=== PATIENT | female | born 1970 | race Caucasian/White ===

== ENCOUNTER → 2018-06-24 | Outpatient (CLI) | payer MEDICAID ==
--- NOTE | 2018-06-25 12:00 | MM ---
Reason for exam: screening (asymptomatic). Last mammogram was performed 2 years and 11 months ago. History: Family history of breast cancer in maternal grandmother at age 60 and breast cancer in maternal aunt. US discontinued breast bx RT of the right breast, August 03, 2015. Took hormonal contraceptives for 6 years. Physical Findings: A clinical breast exam by your physician is recommended on an annual basis and results should be correlated with mammographic findings. MG Screening Mammo w CAD Bilateral CC and MLO view(s) were taken. XCCL view(s) were taken of the left breast. Prior study comparison: July 18, 2015, bilateral MG 3d screening mammo w/cad. The breast tissue is heterogeneously dense. This may lower the sensitivity of mammography. There is no discrete abnormality. No significant changes when compared with prior studies. ASSESSMENT: Negative, BI-RAD 1 RECOMMENDATION: Routine screening mammogram of both breasts in 1 year.
== END | disposition home or self-care (01) ==
LOC: RADMAMWWP 13:02
PROVIDERS: ATTEND Internal Medicine
DX: Z12.31 Encounter for screening mammogram for malignant neoplasm of breast (principal)
CPT/HCPCS: 77067

== ENCOUNTER → 2020-09-21 | Outpatient (CLI) | payer BC ==
--- NOTE | 2020-09-21 14:18 | MM ---
Reason for exam: screening (asymptomatic). Last mammogram was performed 2 years and 3 months ago. History: Family history of breast cancer in maternal grandmother at age 60 and breast cancer in maternal aunt. US discontinued breast bx RT of the right breast, August 03, 2015. Took hormonal contraceptives for 6 years. Physical Findings: A clinical breast exam by your physician is recommended on an annual basis and results should be correlated with mammographic findings. MG 3D Screening Mammo W/Cad Bilateral CC and MLO view(s) were taken. Prior study comparison: June 24, 2018, bilateral MG screening mammo w CAD. July 18, 2015, bilateral MG 3d screening mammo w/cad. The breast tissue is heterogeneously dense. This may lower the sensitivity of mammography. There are benign appearing round calcifications bilaterally. There is no discrete abnormality. ASSESSMENT: Benign, BI-RAD 2 RECOMMENDATION: Routine screening mammogram of both breasts in 1 year.
== END | disposition home or self-care (01) ==
LOC: RADMAMWWP 07:04
PROVIDERS: ATTEND Internal Medicine
DX: Z12.31 Encounter for screening mammogram for malignant neoplasm of breast (principal)
CPT/HCPCS: 77063; 77067

== ENCOUNTER → 2021-02-01 | Outpatient (CLI) | payer BC ==
[~2021-02-01] MED LIST: IRON DEXTRAN 100 MG/2 ML VIAL IV NR; SODIUM CHLORIDE 0.9% 500 ML 500 ML in EMPTY BAG 1 BAG IV PRN
[2021-02-01 08:52] VITALS: BP 161/99; PULSE 97; RESP 16; TEMP 98.1
== END ==
LOC: PROCWHC3 08:39
PROVIDERS: ATTEND Family Medicine
DX: D50.9 Iron deficiency anemia, unspecified (principal)
CPT/HCPCS: 96374; J1750

== ENCOUNTER 2021-05-19 20:17 | Emergency (ER) | payer BC ==
[2021-05-19 20:41] VITALS: BP 133/78; PULSE 60; RESP 20; TEMP 98.6
[2021-05-19] MEDS ORDERED: DIPH,PERTUS(ACELL)TETVAC-LF 0.5 ML VIAL IM ONE (20:55)
[2021-05-19] MEDS ORDERED: ACETAMINOPHEN TAB 500 MG TAB PO STA (20:55)
[2021-05-19] MEDS ORDERED: CIPROFLOXACIN HCL 500 MG TAB PO STA (20:55)
--- NOTE | 2021-05-19 21:09 | XR ---
EXAMINATION TYPE: XR foot complete LT DATE OF EXAM: 05/19/2021 CLINICAL HISTORY: Foot pain, stepped on nail TECHNIQUE: Frontal, lateral, and oblique images of the left foot are obtained. COMPARISON: None FINDINGS: No acute fracture/dislocation evident in the left foot. Mild degenerative changes of the first metata rsophalangeal joint. Mild degenerative changes of the midfoot. Bipartite medial sesamoid bone. The ov erlying soft tissue appears unremarkable. No radiopaque foreign bodies. IMPRESSION: 1. No acute fracture or dislocation. 2. No radiopaque foreign bodies.
--- NOTE | 2021-05-19 21:16 | ED ---
Skin/Abscess/FB HPI - General Chief complaint: Skin/Abscess/Foreign Body Stated complaint: L foot injury, stepped on nail Time Seen by Provider: 05/19/21 20:44 Source: patient, family Mode of arrival: ambulatory Limitations: no limitations - History of Present Illness Initial comments: 50 year-old female patient presents to the emergency department for evaluation after she stepped on a chencho nail. States it went through her shoe. Injury occurred about 2 hours prior to arrival. She reports some pain to the forefoot. States she did wash the area immediately. Reports some pain to the top of the foot as well. Denies numbness or tingling. Denies any other injuries or concerns. - Related Data Home Medications Medication Instructions Recorded Confirmed Cholecalciferol [Vitamin D3 (25 25 mcg PO DAILY 02/01/21 02/01/21 Mcg = 1000 Iu)] Ferrous Sulfate [Iron] 325 mg PO BID 02/01/21 02/01/21 Inulin/Chromium Picolinate [Fiber 1 each PO DAILY 02/01/21 02/01/21 Gummies Chew] Multivitamin [Multivitamins Adult 1 each PO DAILY 02/01/21 02/01/21 Gummies] [place]-3 Fatty Acids/Fish Oil [Fish 1 each PO DAILY 02/01/21 02/01/21 Oil 1,000 mg Softgel] Pantoprazole Sodium [Protonix] 40 mg PO DAILY 02/01/21 02/01/21 Previous Rx's Medication Instructions Recorded Ciprofloxacin HCl [Cipro] 500 mg PO Q12HR #10 tablet 05/19/21 Fluconazole [Diflucan] 150 mg PO ONCE #2 tab 05/19/21 Allergies Allergy/AdvReac Type Severity Reaction Status Date / Time No Known Allergies Allergy Verified 05/19/21 20:41 Review of Systems ROS Statement: Those systems with pertinent positive or pertinent negative responses have been documented in the HPI. ROS Other: All systems not noted in ROS Statement are negative. Past Medical History Past Medical History: GERD/Reflux Additional Past Medical History / Comment(s): anemia, irritable bowel syndrome, migraines History of Any Multi-Drug Resistant Organisms: None Reported Past Surgical History: Bariatric Surgery, Tubal Ligation Past Anesthesia/Blood Transfusion Reactions: Motion Sickness Past Psychological History: No Psychological Hx Reported Smoking Status: Current every day smoker Past Alcohol Use History: None Reported Past Drug Use History: None Reported General Exam Limitations: no limitations General appearance: alert, in no apparent distress, other (This is a well- developed, well-nourished adult female patient in no acute distress. Vital signs upon presentation are temperature 98.6F, pulse 60, respirations 20, blood pressure 133/78, pulse ox 100% on room air.) Respiratory exam: Present: normal lung sounds bilaterally. Absent: respiratory distress, wheezes, rales, rhonchi, stridor Cardiovascular Exam: Present: regular rate, normal rhythm, normal heart sounds. Absent: systolic murmur, diastolic murmur, rubs, gallop, clicks Extremities exam: Present: full ROM, normal capillary refill, other (Small puncture to the bottom of the foot. No swelling. No erythema. skin is otherwise pink, warm, dry. Cap refill less than 3 seconds. Pedal and posttibial pulses 2+.). Absent: tenderness, pedal edema, joint swelling, calf tenderness Neurological exam: Present: alert, oriented X3, CN II-XII intact Psychiatric exam: Present: normal affect, normal mood Skin exam: Present: warm, dry, intact, normal color. Absent: rash Course Vital Signs 05/19/21 20:38 Temperature 98.6 F Pulse Rate 60 Respiratory 20 Rate Blood Pressure 133/78 O2 Sat by Pulse 100 Oximetry Medical Decision Making - Medical Decision Making 50-year-old female patient presents to the emergency department today for evaluation after stepping on a nail. Nail went through the bottom of her shoe. Physical exam did reveal puncture wound to the plantar surface of the forefoot. No erythema, no swelling. X-ray showed no radiopaque foreign body. She'll be started on Cipro for infection prevention. We did update her tetanus. She'll be discharged follow up with the primary care physician for recheck in one to days. Return parameters were discussed in detail. She verbalizes understanding and agrees with this plan. My attending is Dr. Chawla. - Radiology Data Radiology results: report reviewed, image reviewed 3 views of the left foot are obtained. Report was reviewed in its entirety. Impression by Dr. Kelley shows no acute fracture or dislocation. No radiopaque foreign bodies. Disposition Clinical Impression: Puncture wound of left foot Disposition: HOME SELF-CARE Condition: Good Instructions (If sedation given, give patient instructions): Puncture Wound (ED) Additional Instructions: Complete antibiotic prescription in full. Take Tylenol Motrin for pain control. Follow-up with your primary care physician for recheck in 1-2 days. Return to the emergency department immediately for any new, worsening, or concerning symptoms. Prescriptions: Ciprofloxacin HCl [Cipro] 500 mg PO Q12HR #10 tablet Fluconazole [Diflucan] 150 mg PO ONCE #2 tab Is patient prescribed a controlled substance at d/c from ED?: No Referrals: Michael Fowler MD [Primary Care Provider] - 1-2 days Time of Disposition: 21:16
== END 2021-05-19 21:28 | disposition home or self-care (01) ==
LOC: EC 20:17
DX: S91.332A Puncture wound without foreign body, left foot, initial encounter (principal); K21.9 Gastro-esophageal reflux disease without esophagitis; F17.200 Nicotine dependence, unspecified, uncomplicated; Z79.899 Other long term (current) drug therapy; W45.0XXA Nail entering through skin, initial encounter; Y92.009 Unspecified place in unspecified non-institutional (private) residence as the place of occurrence of the external cause; Z23 Encounter for immunization
CPT/HCPCS: 90471; 90715; 99283

== ENCOUNTER 2022-01-28 08:40 | Day surgery (SDC) | payer BC ==
[2022-01-24 15:53] VITALS: BMI 32.8
[~2022-01-28 08:40] MED LIST changes: -IRON DEXTRAN 100 MG/2 ML VIAL IV NR; +LACTATED RINGERS 1,000 ML IV SCH; +LIDOCAINE 1% (10MG/ML) FOR IV START INTRADERMA PRN; -SODIUM CHLORIDE 0.9% 500 ML 500 ML in EMPTY BAG 1 BAG IV PRN
[2022-01-28 10:04] VITALS: TEMP 97.9
[2022-01-28] MEDS ORDERED: LIDOCAINE 2% INJ 20 MG/ML (2 ML VIAL) ONE (10:55)
[2022-01-28] MEDS ORDERED: PROPOFOL 10 MG/ML 20 ML VIAL IV ONE (10:55)
--- NOTE | 2022-01-28 11:11 | P.PCN ---
Date of Procedure: 01/28/22 Procedure(s) Performed: BRIEF HISTORY: Patient is a 51-year-old pleasant white female scheduled for an elective colonoscopy as a part of screening for colorectal neoplasia. PROCEDURE PERFORMED: Colonoscopy. PREOPERATIVE DIAGNOSIS: Screening for colon cancer. IV sedation per Anesthesia. PROCEDURE: After informed consent was obtained, the patient, was brought into the endoscopy unit. IV sedation was administered by Anesthesia under continuous monitoring. Digital rectal examination was normal. Initially the Olympus CF-160 flexible video colonoscope was then inserted in the rectum, gradually advanced into the cecum without any difficulty. Careful examination was performed as the scope was gradually being withdrawn. Ileocecal valve and the appendiceal orifice were visualized and appeared normal. Prep was excellent. Mucosa of the cecum, ascending colon, transverse colon, descending colon, sigmoid colon, and rectum appeared normal. Retroflexion was performed in the rectum and no lesions were seen. The patient tolerated the procedure well. IMPRESSION: Normal-appearing colon from rectum to cecum with no evidence of colorectal neoplasia . RECOMMENDATIONS: Findings of this examination were discussed with the patient as well as a family. She was advised to have a repeat screening colonoscopy in 10 years
[2022-01-28 11:18] VITALS: RESP 18
[2022-01-28 11:32] VITALS: BP 104/72; PULSE 54
== END 2022-01-28 11:49 | disposition home or self-care (01) ==
LOC: ORWHC2ENDO 08:40
PROVIDERS: ATTEND Internal Medicine Gastroenterology
DX: Z12.11 Encounter for screening for malignant neoplasm of colon (principal)
CPT/HCPCS: 45378; 81025; J2704; J2001

== ENCOUNTER → 2023-05-06 | Outpatient (CLI) | payer BC ==
--- NOTE | 2023-05-06 14:34 | BD ---
EXAMINATION TYPE: Axial Bone Density DATE OF EXAM: 05/06/2023 CLINICAL HISTORY: 52 years old Female. ICD-10 CODE: M85.851 disorder of bone Height: 66 in Weight: 225 lbs FRAX RISK QUESTIONS: Current Tobacco Use: yes RISK FACTORS HISTORY OF: Active: yes Postmenopausal woman: If Premenopausal, do you have irregular periods: yes Take estrogen and/or progesterone medications: not now How lon years MEDICATIONS: Additional Medications: gerd meds, omega 3, iron EXAM MEASUREMENTS: Bone mineral densitometry was performed using the [email or web address] System. Bone mineral density as measured about the Lumbar spine is: ----- L1-L4(G/cm2): 1.644 T Score Values are as follows: ----- L1: 2.9 ----- L2: 3.8 ----- L3: 4.6 ----- L4: 3.9 ----- L1-L4: 3.9 Z Score Values are as follows: ----- L1: 2.2 ----- L2: 3.1 ----- L3: 3.9 ----- L4: 3.2 ----- L1-L4: 3.2 Bone mineral density baseline Bone mineral density about the R hip (g/cm2): 1.364 Bone mineral density about the L hip (g/cm2): T Score values are as follows: -----R Neck: 2.1 -----L Neck: 2.0 -----R Total: 2.8 -----L Total: 2.9 Z Score values are as follows: -----R Neck: 2.2 -----L Neck: 2.0 -----R Total: 2.5 -----L Total: 2.5 Bone mineral density baseline FRAX%s: The graph provided illustrates a 2.8% chance for a major osteoporotic fx and a 0.0% chance fo r the hips probability for fx in 10 years time. IMPRESSION: Normal (Values between +1 and -1 indicate normal bone mass). Consider repeating this study in 5 year s or sooner if there is some new clinical indication. NOTE: T-SCORE=SD OF THE YOUNG ADULT MEAN.
--- NOTE | 2023-05-07 08:45 | MM ---
Reason for Exam: Screening (asymptomatic). Last mammogram was performed 2 year(s) and 7 month(s) ago. Patient History: Menarche at age 14. First Full-Term at age 23. Patient used Hormonal Contraceptives for 6 years. 08/03/2015, US discontinued breast bx RT on the right side. Maternal grandmother had breast cancer, age 60. Maternal aunt had breast cancer. Risk Values: Temi 5 year model risk: 0.9%. NCI Lifetime model risk: 8.0%. Prior Study Comparison: 07/18/2015 Bilateral Screening Mammogram, [facility]. 06/24/2018 Bilateral Screening Mammogram, [facility]. 09/21/2020 Bilateral Screening Mammogram, [facility]. Tissue Density: The breast tissue is heterogeneously dense. This may lower the sensitivity of mammography. Findings: Analyzed By CAD. There is no suspicious group of microcalcifications or new suspicious mass in either breast. Benign calcifications within both breasts. Overall Assessment: Benign, BI-RAD 2 Management: Screening Mammogram of both breasts in 1 year. A clinical breast exam by your physician is recommended on an annual basis and results should be correlated with mammographic findings. Note on Temi scores and lifetime risk: 1. A Temi score greater than 3% is considered moderate risk. If this is the case, consider specialist referral to assess eligibility for a risk reducing agent. If overall lifetime risk for the development of breast cancer is 20% or higher, the patient may qualify for future screening with alternating mammogram and breast MRI. Electronically signed and approved by: Dillon Mclain D.O.
== END | disposition home or self-care (01) ==
LOC: RADMAMWWP 10:34
PROVIDERS: ATTEND Internal Medicine
DX: Z12.31 Encounter for screening mammogram for malignant neoplasm of breast (principal); M85.851 Other specified disorders of bone density and structure, right thigh; Z80.3 Family history of malignant neoplasm of breast
CPT/HCPCS: 77063; 77067; 77080

== ENCOUNTER → 2024-01-06 | Outpatient (CLI) | payer OTHER ==
[2024-01-06 15:54] LABS: HCT 45.1 % (37.2-46.3); MCH 29.6 pg (27.0-32.0); MCHC 33.3 g/dL (32.0-37.0); Mean Platelet Volume 10.5 FL (9.5-12.2); NRBC Per 100 WBC 0 X 10*3/uL (0.00-0.01); Platelet Count 187 X 10*3/uL (140-440); RBC 5.07 X 10*6/uL (4.10-5.20); RDW 12.6 % (11.5-14.5); WBC 4.77 X 10*3/uL (4.50-10.00)
[2024-01-06 16:41] LABS: Progesterone 0.4 ng/mL
[2024-01-06 16:49] LABS: ALT 23 U/L (8-44); AST 27 U/L (13-35); Albumin 4.3 g/dL (3.8-4.9); Albumin/Globulin Ratio 2.05 Ratio (1.60-3.17); Alkaline Phosphatase 69 U/L (41-126); Calcium 9.4 mg/dL (8.7-10.3); Carbon Dioxide 26.8 mmol/L (21.6-31.8); Chloride 104 mmol/L (96-109); Estradiol 62.5 pg/mL; Globulin 2.1 g/dL (1.6-3.3); Glucose 131 mg/dL (70-110); Potassium 4.3 mmol/L (3.5-5.5); Sodium 141 mmol/L (135-145); T4, Free (Free Thyroxine) 1.36 ng/dL (0.80-1.80); Total Bilirubin 0.4 mg/dL (0.3-1.2); Total Protein 6.4 g/dL (6.2-8.2)
[2024-01-06 18:02] LABS: Follicle Stimulating Hormone 51.8 mIU/mL
== END | disposition home or self-care (01) ==
LOC: LABWHC1 10:14
PROVIDERS: ATTEND Obstetrics & Gynecology
DX: N95.1 Menopausal and female climacteric states (principal); R37 Sexual dysfunction, unspecified
CPT/HCPCS: 36415; 80053; 82670; 83001; 83036; 84144; 84403; 84439; 84443; 84481; 85027; 86376

== ENCOUNTER → 2025-04-06 | Outpatient (CLI) | payer OTHER ==
--- NOTE | 2025-04-06 07:40 | US ---
EXAMINATION TYPE: US carotid duplex BILAT DATE OF EXAM: 04/06/2025 COMPARISON: NONE CLINICAL INDICATION: Female, 54 years old with history of [id number] BILAT CAROTID ARTERY STENOSIS; stenos is Additional History: .... TECHNIQUE: Grayscale, color Doppler and spectral Doppler evaluation of the bilateral carotid systems and vertebral arteries. Indirect Doppler criteria was utilized. FINDINGS: EXAM MEASUREMENTS: RIGHT: Peak Systolic Velocity (PSV) cm/sec ----- Right CCA: 93.9 ----- Right ICA: 86.6 ----- Right ECA: 88.1 ICA/CCA ratio: 0.9 RIGHT: End Diastole cm/sec ----- Right CCA: 29.9 ----- Right ICA: 27 ----- Right ECA: 16.7 LEFT: Peak Systolic Velocity (PSV) cm/sec ----- Left CCA: 90.3 ----- Left ICA: 88.7 ----- Left ECA: 88.7 ICA/CCA ratio: 1.0 LEFT: End Diastole cm/sec ----- Left CCA: 27.3 ----- Left ICA: 30.5 ----- Left ECA: 16 VERTEBRALS (direction of flow): Right Vertebral: Antegrade Left Vertebral: Antegrade Rhythm: Normal SPEECH AND LANGUAGE TUTOR NOTES: No significant stenosis seen Color Doppler imaging shows patency with blood flow throughout the carotid artery. Spectral waveforms are within normal limits. IMPRESSION: Right: No hemodynamically significant stenosis. Left: No hemodynamically significant stenosis. Criteria for Assigning % of Stenosis / Diameter reduction (Estimation based on the indirect measurements of the internal carotid artery velocities (ICA PSV). 1. Normal (no stenosis)=ICA PSV < 180 cm/s: ratio < 2.0: ICA EDV<40 cm/s. 2. Less than 50% stenosis=ICA PSV < 180 cm/s: ratio < 2.0: ICA EDV<40 cm/s. 3. 50 to 69% stenosis=ICA PSV of 180 to 230 cm/s: ration 2.0 ? 4.0: ICA EDV 40-100 cm/s. PSV 125-180 cm/sec and ICA/CCA PSV Ratio ? 2.0 is also consistent with 50-69% stenosis 4. Greater than 70% stenosis to near occlusion= ICA PSV > 230 cm/s: ratio > 4.0: ICA EDV > 100 cm/s. 5. Near occlusion= ICA PSV velocities may be low or undetectable: variable ratio and ICA EDV. 6. Total occlusion=unable to detect flow. [facility], , 04/06/2025 7:37 AM
== END | disposition home or self-care (01) ==
LOC: RADUSWWP 07:07
DX: I65.23 Occlusion and stenosis of bilateral carotid arteries (principal)
CPT/HCPCS: 93880

== ENCOUNTER → 2025-04-06 | Outpatient (CLI) | payer OTHER ==
--- NOTE | 2025-04-06 19:32 | MM ---
Reason for Exam: Screening (asymptomatic). Last mammogram was performed 1 year(s) and 11 month(s) ago. Patient History: Menarche at age 14. First Full-Term at age 23. Patient used Hormonal Contraceptives for 6 years. 08/03/2015, US discontinued breast bx RT on the right side. Maternal grandmother had breast cancer, age 60. Maternal aunt had breast cancer. Risk Values: Temi 5 year model risk: 0.9%. NCI Lifetime model risk: 7.8%. Prior Study Comparison: 06/24/2018 Bilateral Screening Mammogram, [facility]. 09/21/2020 Bilateral Screening Mammogram, [facility]. 05/06/2023 Bilateral MG 3D screening mammo w/cad, [facility]. Tissue Density: The breasts are heterogeneously dense, which may obscure small masses. Findings: Analyzed By CAD. Chronic nodularity on the right. There is no suspicious group of microcalcifications or new suspicious mass in either breast. Overall Assessment: Benign, BI-RAD 2 Management: Screening Mammogram of both breasts in 1 year. Patient should continue monthly self-breast exams. A clinical breast exam by your physician is recommended on an annual basis. This exam should not preclude additional follow-up of suspicious palpable abnormalities. Note on Temi scores and lifetime risk: 1. A Temi score greater than 3% is considered moderate risk. If this is the case, consider specialist referral to assess eligibility for a risk reducing agent. 2. If overall lifetime risk for the development of breast cancer is 20% or higher, the patient may qualify for future screening with alternating mammogram and breast MRI. [facility], , 04/06/2025 7:30 PM. Electronically signed and approved by: Marie Spain M.D. Radiologist
== END | disposition home or self-care (01) ==
LOC: RADMAMWWP 07:11
PROVIDERS: ATTEND Internal Medicine
DX: Z12.31 Encounter for screening mammogram for malignant neoplasm of breast (principal); R92.333 Mammographic heterogeneous density, bilateral breasts; Z92.0 Personal history of contraception; Z80.3 Family history of malignant neoplasm of breast
CPT/HCPCS: 77063; 77067